=== PATIENT | female | born 1995 | race Hispanic/Latino ===

== ENCOUNTER 2024-08-20 18:15 | Emergency (ER) | payer BC ==
[~2024-08-20] VITALS: Ht 149.9 cm; Wt 47.6 kg
[2024-08-20 18:16] VITALS: BP_DIAS 59
[2024-08-20] MEDS: NEOMY SULF/BACITRA/POLYMYXIN B 1 EACH PACKET TP STA (18:52)
[2024-08-20 19:01] VITALS: BP_SYST 99; PULSE 80; RESP 16; TEMP 98.3; O2SAT 98
[2024-08-20] MEDS ORDERED: SULF1TAB42 PO (19:03)
[2024-08-20] MEDS ORDERED: METR-172 PO (19:03)
--- NOTE | 2024-08-20 19:05 | ERN ---
ED Note History of Present Illness Stated Complaint: RT ARM DOG BITE Chief Complaint: Animal Bite Time Seen by MD: 18:20 Time Seen by Midlevel: 18:22 Dictation: 29-year-old female with with past medical history of factor five coming in after being bit by a dog to the right lower forearm and dog park. Unknown of the dog was vaccinated. Patient states she is current with the tetanus vaccine. This incident happened and [place], no police report has been made yet. Allergies: Coded Allergies: amoxicillin (Unverified Allergy, Unknown, 08/20/24) Past Medical History Past Medical History: Other Additional Past Medical Hx: CLOTTING DISORDER Surgical History: Other Review of System Dictation Constitutional: Negative for fever,chills, and weight loss Eyes: Negative for injury, pain,redness, and discharge ENT: Negative for injury,pain or swelling Cardiovascular: Negative for chest pain, palpitations, and edema Respiratory: Negative for shortness of breath, cough, and wheezing, Abdomen/GI: Negative for abdominal pain, nausea, vomiting, diarrhea, and constipation Back: Negative for injury and pain : Negative for injury, bleeding and discharge MS/Extremity: Negative for injury and deformity Skin: Negative for rash, and discoloration dog bite to the right lower forearm Neuro: Negative for headache, weakness, numbness, tingling, and seizure Psych: Negative for suicide ideation, homicidal ideation, and hallucinations Review of Systems: was completed Initial Vital Sign VS Vital Signs Date Time Temp Pulse Resp B/P (MAP) Pulse Ox O2 Delivery O2 Flow Rate FiO2 08/20/24 18:16 97.5 79 14 118/59 99 Room Air 0 Physical Exam Dictation General: awake, alert, NAD Head/Face: Normocephalic, atraumatic Eyes: PERRL, EOMI, vision at baseline ENT: oral cavity clear, TMs clear, no signs of infection Neck: Trachea midline, supple, no nuchal rigidity Cardiovascular: RRR, normal S1/S2, No MRGs, no JVD Respiratory: CTAB, no respiratory distress, No rales or wheezes Abdomen: Soft, non-tender, non-distended, normal bowel sounds, no guarding or rebound. Skin: Warm, dry, normal turgor, no rash, 0.5 cm incision to the right lower mid forearm, no bleeding MS/Extremity: Pulses equal, no cyanosis, neurovascular intact, FROM Neuro: COAx4, GCS 15, strength 5/5, CN 2-12 intact, normal cerebellar exam, normal gait, Psych: Normal behavior, mood, and affect normal ED Course ED Course Orders Procedure Category Date Status Time Neomy PHA 08/20/24 Complete Sulf/Bacitra/Polymyxin 18:26 *Nursing CPOE 08/20/24 Transmitted Communication: 18:26 Current Medications Medications (Trade) Dose Ordered Sig/William Route PRN Reason Start Time Stop Time Status Last Admin Dose Admin Neomycin/ Polymyxin/ Bacitracin (Triple Antibiotic Ointment) 1 appl ONCE STAT TP 08/20/24 18:26 08/20/24 18:28 DC Vital Signs Date Time Temp Pulse Resp B/P (MAP) Pulse Ox O2 Delivery O2 Flow Rate FiO2 08/20/24 18:16 97.5 79 14 118/59 99 Room Air 0 Medical Decision Making MDM MDM: 29-year-old female with with past medical history of factor five coming in after being bit by a dog to the right lower forearm and dog park. Unknown of the dog was vaccinated. Patient states she is current with the tetanus vaccine. This incident happened and [place], no police report has been made yet. Incision is about 0.5 cm, no bleeding, minimal swelling, patient has full range of motion to sling proximal, distal pulses intact. Extremity is warm to touch, no redness, no streaking. Discussed patient that renal lung sounds give rabies vaccine. Patient called [place] PD to an make police report, states they were call her cell phone since [place] is [place] the city limits. We will have to prescribe Flagyl and Bactrim due to patient being allergic to amoxicillin. Educated patient to follow up with PCP in a wound care. Patient verbalized understanding, answered all questions. Differential diagnosis: Cellulitis, superficial bite, foreign body Rationale: Tests considered and ordered secondary to shared decision making include: Previous outside records reviewed: Old ER visits. Risk of complication and/or morbidity or mortality of patient management: None Medications-Per medication reconciliation Need for hospitalization: Patient does not meet criteria for hospitalization. Need for emergency major/minor surgery: No There are no social concerns with this patient. Prescription drug management Prescriptions will include symptomatic care Patient's prior external medical records from other ER visits were reviewed by me as indicated. Prior testing and results from previous visits were reviewed. Prior tests were taken into account with medical decision making and resource utilization, independent historian/historians were used to obtain complete m edical history. I independently interpreted the test that were performed, results were reviewed by me and considered findings on radiology if ordered. Medical management and examination interpretation discussions were had by me with other qualified healthcare professionals as indicated for the patient's care. DX & DISP Disposition: Discharge Departure Impression: Primary Impression: Dog bite Condition: Stable Scripts Sulfamethoxazole/Trimethoprim (Bactrim Ds Tablet) 800 Mg-160 Mg Tablet 1 TAB PO BID for 7 Days, #20 TAB 0 Refills Prov: PATRIC NGO NP 08/20/24 Metronidazole (Metronidazole) 500 Mg Tablet 1 TAB PO TID for 7 Days, #14 TAB 0 Refills Prov: PATRIC NGO [employer] 08/20/24 Additional Instructions: Complete the the course of antibiotics prescribed. Take Tylenol or Motrin [id number] for pain management. Return to the emergency room if you know suspect any signs of infection or worsening of wound appearance. Keep wound clean, cleaned with soap and water. Referrals: RADHA DAVIS (PCP) Time of Disposition: 19:03 I have reviewed the case, and I agree with, Diagnosis and Plan PATRIC NGO NP Aug 20, 2024 19:05
== END 2024-08-20 19:12 | disposition home or self-care (01) ==
LOC: EDH 18:15
DX: S51.851A Open bite of right forearm, initial encounter (principal); Z88.0 Allergy status to penicillin; W54.0XXA Bitten by dog, initial encounter; Y93.89 Activity, other specified; Y92.89 Other specified places as the place of occurrence of the external cause; Y99.8 Other external cause status
CPT/HCPCS: 99283